=== PATIENT | male | born 1955 | race Asian ===

== ENCOUNTER 2022-02-15 09:56 | Emergency (ER) | payer OTHER, SELFPAY ==
--- NOTE | 2022-02-15 09:57 | ED.SKABFB ---
HPI - Skin/Abscess/Foreign Bdy General Chief complaint: Allergic Reaction Stated complaint: ALLERGIC REACTION Time Seen by Provider: 02/15/22 09:57 Source: patient, family and RN notes reviewed History of Present Illness HPI narrative: Patient is a 66-year-old male who presents to urgent care with his daughter with complaints of allergic reaction with scalp and eye swelling. Patient states he went to an urgent care yesterday and [facility] and was placed on 50 mg of prednisone, doxycycline, and hydroxyzine. Patient was given steroid injection at the facility as well as Toradol. Patient states that the allergic reaction started yesterday after using hair dye. Patient has never had allergic reaction in the past. States that he did have left eye swelling yesterday but is now having swelling to the right eye and was concerned it may travel to his throat. Patient has been taking his medications as directed. Denies any difficulty breathing, swallowing, wheezing. Denies any changes in vision. No other acute complaints. No acute distress noted. Patient and daughter aware of the plan of care. Some parts of this dictation were generated by voice recognition software and may contain typographical and/or grammatical inaccuracies. Review of Systems Review of Systems: CONSTITUTIONAL: Denies fever, chills, or sweats. EYES: Reports bilateral eye swelling ENT: Denies rhinorrhea, congestion, sore throat, or otalgia. CARDIOVASCULAR: Denies chest pain, palpitations, or edema. RESPIRATORY: Denies cough or dyspnea. GASTROINTESTINAL: Denies abdominal pain, nausea, vomiting, or diarrhea. GENITOURINARY: Denies dysuria or hematuria. SKIN: Reports of scalp swelling MUSCULOSKELETAL: Denies back pain, joint pain, or myalgia. NEUROLOGIC: Denies headache, numbness, or weakness. All other systems reviewed are negative, except as documented in HPI. PMFSH Comments At the time of my signature, I reviewed and agree with the nursing past medical, surgical, social, and family history. There is no relevant family history pertinent to the patient complaint. Exam Narrative: GENERAL: This is a well-nourished, well-developed patient, in no apparent distress. HEAD: normocephalic, atraumatic. EYES: PERRL. Sclera clear/white. Vision is grossly intact. Scant clear drainage bilaterally. Moderate edema/erythema to the upper left eyelid. Mild edema/erythema to the upper right eyelid EARS: External ears normal, auditory canals clear and without drainage, TMs normal without perforation. Hearing grossly intact. NOSE: External nose normal with no obvious nasal discharge, nares without redness, no rhinorrhea. THROAT: Mucous membranes moist, posterior pharynx clear. Patent airway NECK: Neck supple, non-tender without lymphadenopathy CARDIOVASCULAR: Regular rate and rhythm without murmurs, gallops, or rubs. RESPIRATORY: Clear to auscultation. Breath sounds equal bilaterally. No wheezes, rales, or rhonchi. SKIN: warm, intact with no suspicious lesions or rash, good texture and turgor. NEURO: awake, alert, and oriented to person, place and time. There were no obvious focal neurologic abnormalities. EXTREMITIES: No clubbing, cyanosis, or edema. Course Course Level of Care: Express Care Visit Vital Signs Vital signs: Vital Signs Temperature 98.4 F 02/15/22 10:07 Pulse Rate 85 02/15/22 10:07 Respiratory Rate 16 02/15/22 10:07 Blood Pressure 124/74 02/15/22 10:07 Pulse Oximetry 100 02/15/22 10:07 Temperature 98.4 F 02/15/22 10:07 Pulse Rate 85 02/15/22 10:07 Respiratory Rate 16 02/15/22 10:07 Blood Pressure 124/74 02/15/22 10:07 Pulse Oximetry 100 02/15/22 10:07 Reviewed MDM - Skin/Abscess/Foreign Bdy MDM Narrative Medical decision making narrative: Advised patient to continue taking the prescription as directed from the urgent care yesterday. Use hydroxyzine only as needed intermittently for itching. Would recommend adding 20 mg of Pepcid wit
[2022-02-15 10:07] VITALS: BP 124/74; PULSE 85; RESP 16; TEMP 36.9; O2SAT 100
== END 2022-02-15 10:32 | disposition home or self-care (01) ==
PROVIDERS: Emergency Provider Nurse Practitioner Family
DX: H02.844 Edema of left upper eyelid (principal); H02.841 Edema of right upper eyelid; T78.40XA Allergy, unspecified, initial encounter; E78.00 Pure hypercholesterolemia, unspecified
CPT/HCPCS: 99211; G0463